=== PATIENT | male | born 1980 | race Caucasian/White ===

== ENCOUNTER 2023-09-27 19:08 | Emergency (ER) | payer SELFPAY ==
[~2023-09-27] VITALS: Ht 190.5 cm; Wt 73.0 kg
[2023-09-27 19:16] VITALS: BP 148/83; PULSE 81; RESP 16; O2SAT 98
== END 2023-09-27 20:20 | disposition left against medical advice (07) ==
LOC: ER 19:08
DX: S69.81XD Other specified injuries of right wrist, hand and finger(s), subsequent encounter (principal); Z02.79 Encounter for issue of other medical certificate; Z53.21 Procedure and treatment not carried out due to patient leaving prior to being seen by health care provider; X58.XXXD Exposure to other specified factors, subsequent encounter